=== PATIENT | female | born 1965 | race Caucasian/White ===

== ENCOUNTER → 2021-01-16 | Day surgery (SDC) | payer OTHER ==
[~2021-01-16] VITALS: Ht 160 cm; Wt 95.0 kg
[~2021-01-16] MED LIST: ASPI-1444 PO; ASPIRIN 81 MG CHEWABLE TABLET ONE; ASPIRIN 81 MG CHEWABLE TABLET PO ONE; AZEL6DRO5 OU; BACL10TA PO; CETI10TA58 PO; CINA60TA4 PO; DIAZEPAM 5 MG TABLET ONE; DIAZEPAM 5 MG TABLET PO ONE; FentaNYL CITRATE PF 100 MCG/2 ML VIAL IVP ONE; FentaNYL CITRATE PF 100 MCG/2 ML VIAL ONE; GABA-1181 PO; HEPARIN SODIUM 1000 UNITS/NS 1,000 ML IARTER ONE; HEPARIN SODIUM 1000 UNITS/NS 1,000 ML ONE; HEPARIN SODIUM 1000 UNITS/NS 500 ML ONE; HEPARIN SODIUM,PORCINE 5,000 UNITS/ML VIAL IVP ONE; HYDR50TA36 PO; HydrALAZINE HCL 20 MG/ML VIAL IVP ONE; HydrALAZINE HCL 20 MG/ML VIAL ONE; IODIXANOL 320 MG/ML 100 ML VIAL IARTER ONE; IODIXANOL 320 MG/ML 150 ML VIAL IARTER ONE; IODIXANOL 320 MG/ML 150 ML VIAL ONE; IODIXANOL 320 MG/ML 50 ML VIAL ONE; LIDOCAINE 1% 30 ML/SOD BICARB 8.4% 4 ML SQ ONE; LIDOCAINE/PF 1% 30 ML VIAL ONE; LORA-1000 PO; METO25 PO; METOPROLOL TARTRATE 5 MG/5 ML VIAL IVP ONE; METOPROLOL TARTRATE 5 MG/5 ML VIAL ONE; MIDAZOLAM HCL 2 MG/2 ML VIAL IVP ONE; MIDAZOLAM HCL 2 MG/2 ML VIAL ONE; NIFE30TA98 PO; NIFE60TA81 PO; NITROGLYCERIN 50 MG/D5% WATER 250 ML ONE; NITROGLYCERIN/D5W 50 MG/250 ML IV BOTTLE IARTER ONE; SODIUM BICARBONATE 50 MEQ/50 ML VIAL ONE; SODIUM CHLORIDE 0.9% 1,000 ML IV ONE; SODIUM CHLORIDE 0.9% 1,000 ML ONE
[2021-01-16 13:07] LABS: GLUCOMETER DEV NAME(LOC) SDS.; GLUCOSE,POINT OF CARE 191 MG/DL (70-110)
[2021-01-16 14:24] VITALS: BP 207/110
[2021-01-16 16:24] VITALS: BP 200/78
== END | disposition home or self-care (01) ==
LOC: CATHLAB 11:09
PROVIDERS: ATTEND Internal Medicine Interventional Cardiology
DX: I70.222 Atherosclerosis of native arteries of extremities with rest pain, left leg (principal); I12.9 Hypertensive chronic kidney disease with stage 1 through stage 4 chronic kidney disease, or unspecified chronic kidney disease; N18.9 Chronic kidney disease, unspecified; E66.01 Morbid (severe) obesity due to excess calories; G62.9 Polyneuropathy, unspecified; Z79.899 Other long term (current) drug therapy; Z98.890 Other specified postprocedural states; Z90.49 Acquired absence of other specified parts of digestive tract
CPT/HCPCS: 37224; 37228; 75630; 82962; 93005; 99152; 99153; C1725; C1760; C1887; J0360; J1644; J2250; J3010; J3490 ×4; J7030; Q9967 ×2; 36200; 75716; 75962; Z7610